=== PATIENT | male | born 1965 | race Caucasian/White ===

== ENCOUNTER 2018-11-30 19:50 | Inpatient (IN) | payer MEDICARE, MEDICAID, OTHER | END 2018-12-03 10:25 | disposition left against medical advice (07) | LOC: ED HOLD 12-01 00:04 → ER 19:50 → PCU 3S 12-01 08:30 | DX: I26.99 Other pulmonary embolism without acute cor pulmonale (principal); I50.23 Acute on chronic systolic (congestive) heart failure ==